=== PATIENT | male | born 1960 | race African-American/Black ===

== ENCOUNTER 2017-12-10 16:46 | Emergency (ER) | payer SELFPAY, OTHER | END 2017-12-10 19:29 | disposition left against medical advice (07) | LOC: E/R 16:46 | DX: Z53.21 Procedure and treatment not carried out due to patient leaving prior to being seen by health care provider (principal) | CPT/HCPCS: 93005 ==

== ENCOUNTER 2018-08-29 23:54 | Emergency (ER) | payer OTHER ==
[2018-08-30 00:52] LABS: URINE BLOOD (Dip) POC Trace-intact (NEGATIVE); URINE GLUCOSE (Dip) POC Negative (NEGATIVE); URINE KETONES (Dip) POC Trace (NEGATIVE); URINE LEUKOCYTE EST (Dip) POC Negative (NEGATIVE); URINE NITRITE (Dip) POC Negative (NEGATIVE); URINE TOTAL PROTEIN POC 2+ (NEGATIVE)
[2018-08-30 00:52] LABS: URINE PH (Dip) POC 5.5 (5.0-8.5)
[2018-08-30] MEDS: LABETALOL HCL 20MG INJ IV (01:37)
[2018-08-30] MEDS: NIFEdipine (XL) 30 MG TAB PO (01:38)
== END 2018-08-30 02:51 | disposition home or self-care (01) ==
LOC: E/R 23:54
DX: I16.0 Hypertensive urgency (principal); R31.9 Hematuria, unspecified; I10 Essential (primary) hypertension
CPT/HCPCS: 81003; 96374; 99284-25